=== PATIENT | male | born 1950 | race Caucasian/White ===

== ENCOUNTER 2017-11-16 21:06 | Emergency (ER) | payer MEDICARE, OTHER ==
[~2017-11-16] VITALS: Ht 177.8 cm; Wt 110.2 kg
[2017-11-16] MEDS ORDERED: ALLO100 PO (21:16)
[2017-11-16] MEDS ORDERED: COLCHICINE0.6 MG PO (21:57)
[2017-11-16] MEDS ORDERED: Omeprazole20 M1 PO (21:58)
[2017-11-16 22:22] LABS: BASOPHILS ABSOLUTE AUTO 0.06 K/mm3 (0.00-0.23); BASOPHILS PERCENT AUTO 1 % (0-2); EOSINOPHILS PERCENT AUTO 5 % (0-6); Hematocrit 45.2 % (37.0-53.0); IMMATURE GRAN ABSOLUTE AUTO 0.13 K/mm3 (0.00-0.10); IMMATURE GRAN PERCENT AUTO 2 % (0-1); LYMPHOCYTES ABSOLUTE AUTO 1.69 K/mm3 (0.84-5.20); LYMPHOCYTES PERCENT AUTO 28 % (21-46); MONOCYTES ABSOLUTE AUTO 0.53 K/mm3 (0.16-1.47); MONOCYTES PERCENT AUTO 9 % (4-13); Mean Corpuscular HGB 32.2 pg (26.0-34.0); Mean Corpuscular HGB Conc 35.4 g/dL (31.5-36.5); Mean Corpuscular Volume 91 fL (80-100); Mean Platelet Volume 10.1 fL (9.1-12.4); NEUTROPHILS ABSOLUTE AUTO 3.34 K/mm3 (1.96-9.15); NEUTROPHILS PERCENT AUTO 55 % (41-73); Platelet Count 200 K/mm3 (150-400); Red Blood Cell Count 4.97 M/mm3 (4.30-5.90); White Blood Cell Count 6.05 K/mm3 (4.00-11.30)
[2017-11-16 22:43] LABS: Alanine Aminotransfer (ALT/SGP 40 U/L (12-78); Albumin, Blood 3.2 g/dL (3.4-5.0); Albumin/Globulin Ratio 0.8 (0.8-1.8); Alk Phos 93 U/L (50-136); Anion Gap 13 mmol/L (6-16); Aspartate Aminotrans (AST/SGOT 25 U/L (12-37); Bilirubin, Total 0.2 mg/dL (0.1-1.0); Blood Urea Nitrogen 12 mg/dL (8-24); Bun/Creatinine Ratio 16.4 (12.0-20.0); CO2, Blood 23 mmol/L (21-32); Calcium, Blood 8.4 mg/dL (8.5-10.1); Chloride, Blood 104 mmol/L (98-108); Creatinine, Blood 0.73 mg/dL (0.60-1.20); Globulin, Blood 3.9 g/dL (2.2-4.0); Glomerular Filtration Rate >60 (60-); Glucose, Blood 217 mg/dL (70-99); Potassium, Blood 3.9 mmol/L (3.5-5.5); Sodium, Blood 140 mmol/L (136-145); Total Protein, Blood 7.1 g/dL (6.4-8.2); Troponin I <0.015 ng/mL (0.000-0.040)
[2017-11-16] MEDS ORDERED: Augmentin 875-1 EACH PO (22:43)
[2017-11-16] MEDS ORDERED: BENZ100A PO (22:43)
== END 2017-11-17 00:50 | disposition home or self-care (01) ==
LOC: ER 21:06
PROVIDERS: Emergency Medicine
DX: J18.9 Pneumonia, unspecified organism (principal); Z88.1 Allergy status to other antibiotic agents; Z88.8 Allergy status to other drugs, medicaments and biological substances; Z79.899 Other long term (current) drug therapy; E11.9 Type 2 diabetes mellitus without complications; I10 Essential (primary) hypertension; Z87.891 Personal history of nicotine dependence
CPT/HCPCS: 36415; 71046; 80053; 84484; 85025; 93005; 93010; 94640; 99283-25

== ENCOUNTER → 2020-02-04 | Outpatient (CLI) | payer MEDICARE, OTHER ==
[~2020-02-04] MED LIST: ACET325 PO; ALLO100 PO; Augmentin 875-1 EACH PO; BENZ100A PO; CHLO25B PO; COLCHICINE0.6 MG PO; COQ-10100 MG PO; EZETIMIBE10 M3 PO; FISH OIL 1,2001 EAC7 PO; HYDURE500 PO; Hydroxyurea500 MG PO; LISI5 PO; METFORMIN HCL500 M2 PO; OMEP20ER PO; Omeprazole20 M1 PO; POTA10T PO; TURMERIC500 M2 PO; VICTOZA 3-0.6 MG/0.2 SC; VITAMIN D325 MC3 PO; XARELTO20 MG PO
[2020-02-04 17:01] LABS: BASOPHILS ABSOLUTE AUTO 0.03 K/mm3 (0.00-0.23); BASOPHILS PERCENT AUTO 1 % (0-2); EOSINOPHILS ABSOLUTE AUTO 0.13 K/mm3 (0.00-0.68); EOSINOPHILS PERCENT AUTO 2 % (0-6); Hematocrit 42.2 % (37.0-53.0); Hemoglobin 15.8 g/dL (13.5-17.5); IMMATURE GRAN ABSOLUTE AUTO 0.05 K/mm3 (0.00-0.10); IMMATURE GRAN PERCENT AUTO 1 % (0-1); LYMPHOCYTES ABSOLUTE AUTO 1.49 K/mm3 (0.84-5.20); LYMPHOCYTES PERCENT AUTO 25 % (21-46); MONOCYTES ABSOLUTE AUTO 0.58 K/mm3 (0.16-1.47); MONOCYTES PERCENT AUTO 10 % (4-13); Mean Corpuscular HGB 42.2 pg (26.0-34.0); Mean Corpuscular HGB Conc 37.4 g/dL (31.5-36.5); Mean Corpuscular Volume 113 fL (80-100); Mean Platelet Volume 9.6 fL (9.1-12.4); NEUTROPHILS ABSOLUTE AUTO 3.61 K/mm3 (1.96-9.15); NEUTROPHILS PERCENT AUTO 61 % (41-73); Platelet Count 158 K/mm3 (150-400); RDW Coefficient Variation 12.5 % (11.7-14.2); RDW Standard Deviation 51.9 fL (35.1-46.3); Red Blood Cell Count 3.74 M/mm3 (4.30-5.90); White Blood Cell Count 5.89 K/mm3 (4.00-11.30)
[2020-02-04 17:12] LABS: Anion Gap 10 mmol/L (6-16); Blood Urea Nitrogen 15 mg/dL (8-24); Bun/Creatinine Ratio 14.4 (12.0-20.0); CO2, Blood 29 mmol/L (21-32); Chloride, Blood 100 mmol/L (98-108); Creatinine, Blood 1.04 mg/dL (0.60-1.20); Glomerular Filtration Rate >60 (60-); Glucose, Blood 194 mg/dL (70-99); Potassium, Blood 3.6 mmol/L (3.5-5.5); Sodium, Blood 139 mmol/L (136-145); Troponin I 0.033 ng/mL (0.000-0.040)
== END | disposition home or self-care (01) ==
LOC: LAB EV 16:51 → LAB SHORT 16:51
PROVIDERS: Family Medicine
DX: R07.89 Other chest pain (principal)
CPT/HCPCS: 80048; 84484; 85025

== ENCOUNTER 2020-02-07 14:39 | Inpatient (IN) | payer MEDICARE, OTHER ==
[~2020-02-07] VITALS: Ht 177.8 cm; Wt 102.2 kg
[~2020-02-07 14:39] MED LIST changes: -ACET325 PO; -CHLO25B PO; -COQ-10100 MG PO; -EZETIMIBE10 M3 PO; -FISH OIL 1,2001 EAC7 PO; -HYDURE500 PO; -Hydroxyurea500 MG PO; -LISI5 PO; -METFORMIN HCL500 M2 PO; -OMEP20ER PO; -POTA10T PO; -TURMERIC500 M2 PO; -VICTOZA 3-0.6 MG/0.2 SC; -VITAMIN D325 MC3 PO; -XARELTO20 MG PO
[2020-02-07] MEDS ORDERED: CHLO25B PO (16:37)
[2020-02-07] MEDS ORDERED: LISI5 PO (16:37)
[2020-02-07] MEDS ORDERED: VICTOZA 3-0.6 MG/0.2 SC (16:37)
[2020-02-07] MEDS ORDERED: HYDURE500 PO (16:38)
[2020-02-07] MEDS ORDERED: EZETIMIBE10 M3 PO (16:38)
[2020-02-07] MEDS ORDERED: Hydroxyurea500 MG PO (16:38)
[2020-02-07] MEDS ORDERED: METFORMIN HCL500 M2 PO (16:39)
[2020-02-07 17:36] LABS: International Normalized Ratio 1.04; Prothrombin Time Results 11.1 Sec (9.7-11.5)
[2020-02-07] MEDS ORDERED: OMEP20ER PO (18:26)
[2020-02-07] MEDS ORDERED: TURMERIC500 M2 PO (18:26)
[2020-02-07] MEDS ORDERED: VITAMIN D325 MC3 PO (18:27)
[2020-02-07] MEDS ORDERED: FISH OIL 1,2001 EAC7 PO (18:28)
[2020-02-07] MEDS ORDERED: COQ-10100 MG PO (18:29)
--- NOTE | 2020-02-07 19:00 | NUR ---
ASSUMPTION OF CARE BEDSIDE REPORT FROM SUNNY JO, PT AWAKE IN BED ORIENTED x4, ON 2L PER NC TO MAINTAIN O2> 90% AND PROVIDED COMFORT, PT DENIES SOB WITH SUPPLEMENTAL O2, MONITOR SHOWS SINUS RHYTHM WITH HR 100-110, HYPERTENSION NOTED WITH SBP 160'S. HEPARIN ON SB AT THIS TIME, PLAN FOR HVAC DESIGN ENGINEER SOON. PT DENIES ANY PAIN AT THIS TIME.
--- NOTE | 2020-02-07 19:18 | NUR ---
1755 TO ICU 2 FROM ER ASSESSMENTS COMPLETED, PT A&OX4, PLEASANT AND COOPERATIVE, REPORTS MILD SOB AT REST. O2 2L/NC PLACED, SPO2 94%, LS CLEAR. PT DENIES CHEST PAIN AND LE PAIN AT THIS TIME, HR 105 SINUS IRREGULAR, BP ELEVATED 160'S/100. NO PEDAL EDEMA NOTED, PPP, ANTI EMBOLIC STOCKINGS PLACED. NO HEAT/SWELLING NOTED TO LE'S. PT PLEASANT AND COOPERATIVE, AT BEDSIDE, BOTH ABLE TO ANSWER ADMISSION QUESTIONS WITHOUT DIFFICULTY. HEPARIN BOLUS AND INFUSION ADMINISTERED PER ORDERS, DR. ALLEN AT BEDSIDE TO ASSESS, PROCEDURE CONSENT SIGNED BY PT AND DOCTOR. HEPARIN ON SB PER DR. ALLEN AT 1900, PHARMACY NOTIFIED. REPORT TO ONCOMING SHIFT.
--- NOTE | 2020-02-07 19:24 | NUR ---
PT TRANSPORTED TO PIPELINE GANG SUPERVISOR.
[2020-02-07 19:33] LABS: BASOPHILS ABSOLUTE AUTO 0.04 K/mm3 (0.00-0.23); BASOPHILS PERCENT AUTO 1 % (0-2); EOSINOPHILS ABSOLUTE AUTO 0.15 K/mm3 (0.00-0.68); EOSINOPHILS PERCENT AUTO 3 % (0-6); Hematocrit 44.2 % (37.0-53.0); Hemoglobin 16.3 g/dL (13.5-17.5); IMMATURE GRAN ABSOLUTE AUTO 0.06 K/mm3 (0.00-0.10); IMMATURE GRAN PERCENT AUTO 1 % (0-1); LYMPHOCYTES PERCENT AUTO 29 % (21-46); MONOCYTES ABSOLUTE AUTO 0.46 K/mm3 (0.16-1.47); MONOCYTES PERCENT AUTO 8 % (4-13); Mean Corpuscular HGB 41.9 pg (26.0-34.0); Mean Corpuscular HGB Conc 36.9 g/dL (31.5-36.5); Mean Corpuscular Volume 114 fL (80-100); NEUTROPHILS ABSOLUTE AUTO 3.37 K/mm3 (1.96-9.15); NEUTROPHILS PERCENT AUTO 58 % (41-73); Platelet Count 119 K/mm3 (150-400); RDW Coefficient Variation 12.5 % (11.7-14.2); RDW Standard Deviation 51.5 fL (35.1-46.3); Red Blood Cell Count 3.89 M/mm3 (4.30-5.90); White Blood Cell Count 5.78 K/mm3 (4.00-11.30)
[2020-02-07 19:52] LABS: Alanine Aminotransfer (ALT/SGP 52 U/L (12-78); Albumin, Blood 3.6 g/dL (3.4-5.0); Alk Phos 52 U/L (50-136); Anion Gap 7 mmol/L (6-16); Aspartate Aminotrans (AST/SGOT 40 U/L (12-37); Bilirubin, Total 0.6 mg/dL (0.1-1.0); Blood Urea Nitrogen 13 mg/dL (8-24); Bun/Creatinine Ratio 19.9 (12.0-20.0); CO2, Blood 27 mmol/L (21-32); Calcium, Blood 9.7 mg/dL (8.5-10.1); Chloride, Blood 106 mmol/L (98-108); Creatinine, Blood 0.65 mg/dL (0.60-1.20); Globulin, Blood 3.6 g/dL (2.2-4.0); Glomerular Filtration Rate >60 (60-); Glucose, Blood 150 mg/dL (70-99); Potassium, Blood 3.6 mmol/L (3.5-5.5); Sodium, Blood 140 mmol/L (136-145); Total Protein, Blood 7.2 g/dL (6.4-8.2); Troponin I 0.027 ng/mL (0.000-0.040)
--- NOTE | 2020-02-07 22:30 | NUR ---
PT BACK FROM HEALTH POLICY MANAGER @ 2143, ALERT AND ORIENTED, DENIES CP/SOB, 1 SHEATH WITH 2 EKOS, R GROIN SITE STABLE, NO TENDERNESS, TPA INF @ 1mg/hr (50ml/hr) x2, HEPARIN INF @ 6ml/hr TO PERIPHERAL IV. SEE CARDIAC ASSESSMENT FOR LIMB ASSESSMENT. RT TO ROOM TO SET UP PTS HOME CPAP. CALL PLACED TO DR ALLEN TO CLARIFY HEPARIN, ORDER PLACED IN Stylewhile.
[2020-02-08 01:37] LABS: BASOPHILS ABSOLUTE AUTO 0.02 K/mm3 (0.00-0.23); BASOPHILS PERCENT AUTO 0 % (0-2); EOSINOPHILS PERCENT AUTO 2 % (0-6); Hemoglobin 14.3 g/dL (13.5-17.5); IMMATURE GRAN ABSOLUTE AUTO 0.04 K/mm3 (0.00-0.10); IMMATURE GRAN PERCENT AUTO 1 % (0-1); LYMPHOCYTES ABSOLUTE AUTO 1.21 K/mm3 (0.84-5.20); LYMPHOCYTES PERCENT AUTO 25 % (21-46); MONOCYTES ABSOLUTE AUTO 0.39 K/mm3 (0.16-1.47); MONOCYTES PERCENT AUTO 8 % (4-13); Mean Corpuscular HGB 42.3 pg (26.0-34.0); Mean Corpuscular HGB Conc 36.7 g/dL (31.5-36.5); Mean Corpuscular Volume 115 fL (80-100); Mean Platelet Volume 9.7 fL (9.1-12.4); NEUTROPHILS ABSOLUTE AUTO 3.02 K/mm3 (1.96-9.15); NEUTROPHILS PERCENT AUTO 63 % (41-73); Platelet Count 101 K/mm3 (150-400); RDW Coefficient Variation 12.6 % (11.7-14.2); RDW Standard Deviation 53.2 fL (35.1-46.3); Red Blood Cell Count 3.38 M/mm3 (4.30-5.90); White Blood Cell Count 4.78 K/mm3 (4.00-11.30)
[2020-02-08 01:49] LABS: Alanine Aminotransfer (ALT/SGP 41 U/L (12-78); Albumin, Blood 2.9 g/dL (3.4-5.0); Albumin/Globulin Ratio 0.9 (0.8-1.8); Alk Phos 43 U/L (50-136); Anion Gap 5 mmol/L (6-16); Aspartate Aminotrans (AST/SGOT 37 U/L (12-37); Bilirubin, Total 0.6 mg/dL (0.1-1.0); Blood Urea Nitrogen 12 mg/dL (8-24); Bun/Creatinine Ratio 15.2 (12.0-20.0); CO2, Blood 30 mmol/L (21-32); Calcium, Blood 8.6 mg/dL (8.5-10.1); Chloride, Blood 105 mmol/L (98-108); Creatinine, Blood 0.79 mg/dL (0.60-1.20); Globulin, Blood 3.1 g/dL (2.2-4.0); Glomerular Filtration Rate >60 (60-); Glucose, Blood 158 mg/dL (70-99); Potassium, Blood 3.4 mmol/L (3.5-5.5); Sodium, Blood 140 mmol/L (136-145)
--- NOTE | 2020-02-08 06:39 | NUR ---
SHIFT SUMMARY NO ACUTE CHANGES THIS SHIFT, PT WEARS CPAP WITH 6L BLEED IN T/O NIGHT, R GROIN SITE STABLE, EKOS x2 IN PLACE INFUSING TPA, DECREASED TO 0.5mg/hr THIS SHIFT (SEE FLOWSHEET), HEPARIN INFUSING VIA PERIPHERAL IV @ 6ml/hr. PT AROUSES TO VERBAL STIMULI, DENIES PAIN OR SOB, BLE STABLE, WARM TO THE TOUCH, PULSES PRESENT. PT USING URINAL WITH ASSISTANCE. CALL LIGHT WITHIN REACH, PT USING APPROPRIATELY.
--- NOTE | 2020-02-08 08:15 | NUR ---
ASSESSMENT- PT AWAKE, ALERT, COOPERATIVE. NO DISTRESS. STATES "MAYBE SLIGHT DISCOMFORT MID CHEST", STATES BETTER THAN BEFORE, RATES LEVEL 1 ON SCALE, DENIES SOB AT REST, STATES OXYGEN HELPS. SMALL AMOUNT BLOODY SPUTUM. LUNGS CLEAR, SATURATIONS 91% ON 4 L/MIN NC, RESP RATE 28-[address] APICAL REGULAR, ST. BP STABLE. NO OTHER S/S BLEEDING. NO N/V. URINE CLEAR. HEPARIN GTT AT 300 UNITS/HR VIA PIV RIGHT WRIST, SITE DI, USED FOR BLOOD DRAW. RIGHT FEMORAL EKOS SITE DI, NO BLEEDING/SWELLING/HEMATOMA. NS AT 25 CC/HR X 2 TO BOTH PORTS AND TPA AT 25 CC/HR= 0.5 MG/HR X 2 TO BOTH PORTS. REPOSITIONED TILTED TO SIDE, AM CARE. REVIEWED CATH PRECAUTIONS, STATES UNDERSTANDING. ABLE TO USE CALL LIGHT, TALKED WITH ON PHONE.
--- NOTE | 2020-02-08 10:15 | NUR ---
PT WITH STABLE VS. UPDATE TO DR. ALLEN REGARDING INVERTED T WAVES V LEAD, TACHYPNEA. PLAN TO INFUSE TPA NOW UNTIL COMPLETE-D/C CATHS 1230.
--- NOTE | 2020-02-08 10:44 | NUR ---
PT STATES ALL CHEST DISCOMFORT RESOLVED, REFUSES PAIN RX. DENIES SOB, STATES ABLE TO DEEP BREATHE. CONTINUE TO MONITOR
--- NOTE | 2020-02-08 11:41 | NUR ---
Patient is lying in bed and alert. Patient tells me about his medical history, about his current treatment and about the on going plan going forward. Patient has some conserns about his health at this time but is optimistic about how it will lathe turner. Patient talks about his , Deena, his little dog and the the family that he has reconnected with in the last 4yrs. Patient shares about his rosalva and about growing up in a Confucianism home and about how the twists and turns of life have led him to [facility] where he has found meaningful connections to both God and his fellow believers. I listen empathically, normalize patient's experience and provide prayer. Patient responds well and shows signs of being encouraged and verbalizes appreciation for the visit. I will continue to remain available to patient and family.
--- NOTE | 2020-02-08 12:33 | NUR ---
BP ELEVATED, PT C/O CONSTIPATION, GAS DISCOMFORT. DR. NY HERE-UPDATED. ORDERS FOR ANTIHYPERTENSIVE-GIVEN. P
--- NOTE | 2020-02-08 12:55 | NUR ---
DR. RED AT BEDSIDE-D/C EKOS CATHETERS WITHOUT PROBLEMS. SHEATH IN PLACE. HEPARIN ON HOLD FOR ONE HOUR-THEN TO D/C BP IMPROVING. PT DENIES COMPLAINTS
--- NOTE | 2020-02-08 13:40 | NUR ---
DR. ALLEN CALLED BACK, UPDATED WITH PT'S STATUS, SEE ORDERS FOR HEPARIN-TO START 45 MINUTES AFTER HEMOSTASIS OBTAINED AFTER SHEATH PULL. REMAINS TACHYPNEIC, DENIES CHEST PAIN OR SOB.
--- NOTE | 2020-02-08 14:38 | NUR ---
RIGHT FEMORAL SHEATH PULLED, PRESSURE HELD UNTIL HEMOSTASIS OBTAINED, NO BLEEDING/SWELLING OR HEMATOMA. PT TOLERATED WELL. CMS CHECKS TO FEET UNCHANGED. REVIEWED POST CATH PRECAUTIONS. NOTIFIED PHARMACY TO START HEPARIN 45 MINUTES AFTER HEMOSTASIS OBTAINED. PTT ORDERED.
--- NOTE | 2020-02-08 16:57 | NUR ---
SITE CHECKS WNL. HEPARIN GTT RESTARTED AT 15 UNITS/KG/HR PER ORDERS, BOLUS GIVEN OF 6400 UNITS. DENIES PAIN. CONTINUE TO MONITOR
--- NOTE | 2020-02-08 17:53 | NUR ---
ORDERS FOR PCU. REPORT CALLED TO BENITA JO. PT READIED FOR TRANSFER. VSS. SITE UNCHANGED. HEPARIN GTT AT 15 UNIT/KG/HR. SITE INTACT
--- NOTE | 2020-02-08 18:16 | NUR ---
BROUGHT TO PCU ROOM 6 VIA BED FROM ICU. REPORT FROM DEYSI VALDEZ. Pooja/Pooja/OX4. HEPARIN INFUSING AT 15UNITS/KG. RIGHT GROIN SITE BANDAGE CLEAN DRY AND INTACT. LAYING SUPINE FLAT ORDERED UNTIL 1999. CALL LIGHT IN REACH, DENIES NEEDS AT THIS TIME. WILL CONTINUE TO TREAT AND MONITOR UNTIL SHIFT CHANGE.
[2020-02-09 04:41] LABS: BASOPHILS ABSOLUTE AUTO 0.04 K/mm3 (0.00-0.23); BASOPHILS PERCENT AUTO 1 % (0-2); EOSINOPHILS ABSOLUTE AUTO 0.18 K/mm3 (0.00-0.68); EOSINOPHILS PERCENT AUTO 3 % (0-6); Hematocrit 41.7 % (37.0-53.0); IMMATURE GRAN ABSOLUTE AUTO 0.05 K/mm3 (0.00-0.10); IMMATURE GRAN PERCENT AUTO 1 % (0-1); LYMPHOCYTES ABSOLUTE AUTO 1.45 K/mm3 (0.84-5.20); LYMPHOCYTES PERCENT AUTO 26 % (21-46); MONOCYTES ABSOLUTE AUTO 0.49 K/mm3 (0.16-1.47); MONOCYTES PERCENT AUTO 9 % (4-13); Mean Corpuscular HGB 41.7 pg (26.0-34.0); Mean Corpuscular Volume 116 fL (80-100); Mean Platelet Volume 9.9 fL (9.1-12.4); NEUTROPHILS ABSOLUTE AUTO 3.41 K/mm3 (1.96-9.15); NEUTROPHILS PERCENT AUTO 61 % (41-73); Platelet Count 74 K/mm3 (150-400); RDW Coefficient Variation 12.7 % (11.7-14.2); RDW Standard Deviation 54.1 fL (35.1-46.3); White Blood Cell Count 5.62 K/mm3 (4.00-11.30)
[2020-02-09 04:55] LABS: Anion Gap 6 mmol/L (6-16); Blood Urea Nitrogen 12 mg/dL (8-24); Bun/Creatinine Ratio 14.9 (12.0-20.0); CO2, Blood 27 mmol/L (21-32); Calcium, Blood 8.9 mg/dL (8.5-10.1); Chloride, Blood 107 mmol/L (98-108); Creatinine, Blood 0.81 mg/dL (0.60-1.20); Glomerular Filtration Rate >60 (60-); Glucose, Blood 157 mg/dL (70-99); Potassium, Blood 3.4 mmol/L (3.5-5.5); Sodium, Blood 140 mmol/L (136-145)
--- NOTE | 2020-02-09 05:26 | NUR ---
END OF SHIFT SUMMARY NO ACUTE CHANGES THIS SHIFT. VSS. DENIES CP. SOB CONTINUES WITH EXERTION BUT TO A LESSER EXTENT PER PT. PT TITRATED TO RA FROM 3LNC THIS SHIFT. ON HOME CPAP WHILE ASLEEP. SHADIA DRESSING TO R GROIN CDI. SITE PRESENTS W/OUT TENDERNESS, EXCESS REDNESS, OR WARMTH. PT TRENDED DOWN TO SR 80'S TO 90'S HR. WAS BEDREST UNTIL 1999, SINCE THEN PT HAS AMBULATED TO BATHROOM W/OUT INCIDENT. WILL CONTINUE TO MONITOR UNTIL SHIFT CHANGE.
[2020-02-09] MEDS ORDERED: POTA10T PO (15:28)
[2020-02-09] MEDS ORDERED: ACET325 PO (15:28)
[2020-02-09] MEDS ORDERED: XARELTO20 MG PO (15:30)
[2020-02-15 15:09] LABS: ACT. PRT C RESIST W/FV DEFIC. 2.6 ratio (.); APTT 29.7 sec (.); DRVVT RATIO 1.3 ratio (.); DRVVT SCREEN SECONDS 47.5 sec (.); FACTOR VIII ACTIVITY 234 % (.); HEXAGONAL PHOSPHOLIPID NEUTRAL 0 sec (.); HOMOCYSTEINE 7.5 umol/L (.); PRT C ACTIVITY (CHROMOGENIC) 111 % (.)
== END 2020-02-09 16:00 | disposition home or self-care (01) | DRG 175 ==
LOC: ER 14:39 → ICUE 16:48 → ICUW 16:48 → ICUE 17:54 → PCU 02-08 18:07
PROVIDERS: Physician Assistant; ADMIT Family Medicine
PROC: 6A751Z7 Ultrasound Therapy of Other Vessels, Multiple (ICD-10-PCS; principal; 2020-02-07)
PROC: 3E06317 Introduction of Other Thrombolytic into Central Artery, Percutaneous Approach (ICD-10-PCS; 2020-02-07)
PROC: B31TZZZ Fluoroscopy of Left Pulmonary Artery (ICD-10-PCS; 2020-02-07)
PROC: B31SZZZ Fluoroscopy of Right Pulmonary Artery (ICD-10-PCS; 2020-02-07)
DX: I26.02 Saddle embolus of pulmonary artery with acute cor pulmonale (principal); I82.402 Acute embolism and thrombosis of unspecified deep veins of left lower extremity; E11.51 Type 2 diabetes mellitus with diabetic peripheral angiopathy without gangrene; D45 Polycythemia vera; I10 Essential (primary) hypertension; G47.33 Obstructive sleep apnea (adult) (pediatric); Z79.84 Long term (current) use of oral hypoglycemic drugs; K59.00 Constipation, unspecified; I72.4 Aneurysm of artery of lower extremity; E87.6 Hypokalemia; Z87.891 Personal history of nicotine dependence
CPT/HCPCS: 36015; 36415; 37211; 75743; 75825; 76937; 80048; 80053; 81240; 81241; 81291; 82947; 83090; 83880; 84484; 85025; 85240; 85300; 85303; 85306; 85307; 85384; 85610; 85613; 85730; 85732; 86146; 86147; 93005; 93010; 93306; 93970; 99152; 99153; 99285-25; C1757; C1769; C1894; J1644; J1815; J2250; J2997; J3010; J7030; J7050; Q9967

== ENCOUNTER → 2020-02-07 | Outpatient (CLI) | payer MEDICARE, OTHER ==
[2020-02-07 12:32] LABS: BASOPHILS ABSOLUTE AUTO 0.03 K/mm3 (0.00-0.23); BASOPHILS PERCENT AUTO 1 % (0-2); EOSINOPHILS ABSOLUTE AUTO 0.09 K/mm3 (0.00-0.68); EOSINOPHILS PERCENT AUTO 2 % (0-6); Hematocrit 40.1 % (37.0-53.0); IMMATURE GRAN ABSOLUTE AUTO 0.03 K/mm3 (0.00-0.10); IMMATURE GRAN PERCENT AUTO 1 % (0-1); LYMPHOCYTES ABSOLUTE AUTO 0.82 K/mm3 (0.84-5.20); LYMPHOCYTES PERCENT AUTO 18 % (21-46); MONOCYTES ABSOLUTE AUTO 0.39 K/mm3 (0.16-1.47); MONOCYTES PERCENT AUTO 9 % (4-13); Mean Corpuscular HGB 42.4 pg (26.0-34.0); Mean Corpuscular HGB Conc 37.4 g/dL (31.5-36.5); Mean Corpuscular Volume 113 fL (80-100); NEUTROPHILS ABSOLUTE AUTO 3.22 K/mm3 (1.96-9.15); NEUTROPHILS PERCENT AUTO 70 % (41-73); RDW Coefficient Variation 12.9 % (11.7-14.2); RDW Standard Deviation 53.3 fL (35.1-46.3); Red Blood Cell Count 3.54 M/mm3 (4.30-5.90); White Blood Cell Count 4.58 K/mm3 (4.00-11.30)
[2020-02-07 12:33] LABS: Mean Platelet Volume 9.8 fL (9.1-12.4); Platelet Count 111 K/mm3 (150-400)
[2020-02-07 12:44] LABS: Alanine Aminotransfer (ALT/SGP 55 U/L (12-78); Albumin, Blood 3.6 g/dL (3.4-5.0); Albumin/Globulin Ratio 0.9 (0.8-1.8); Alk Phos 51 U/L (40-126); Anion Gap 12 mmol/L (6-16); Aspartate Aminotrans (AST/SGOT 39 U/L (12-37); Bilirubin, Total 0.6 mg/dL (0.1-1.0); Blood Urea Nitrogen 16 mg/dL (8-24); Bun/Creatinine Ratio 15.5 (12.0-20.0); CO2, Blood 27 mmol/L (21-32); Calcium, Blood 10.2 mg/dL (8.5-10.1); Chloride, Blood 98 mmol/L (98-108); Creatinine, Blood 1.03 mg/dL (0.60-1.20); Globulin, Blood 3.8 g/dL (2.2-4.0); Glomerular Filtration Rate >60 (60-); Glucose, Blood 254 mg/dL (70-99); Potassium, Blood 3.8 mmol/L (3.5-5.5); Sodium, Blood 137 mmol/L (136-145); Total Protein, Blood 7.4 g/dL (6.4-8.2); Troponin I 0.026 ng/mL (0.000-0.040)
== END | disposition home or self-care (01) ==
LOC: LAB SHORT 12:16 → LAB EV 12:16
PROVIDERS: Family Medicine
DX: D45 Polycythemia vera (principal); R06.00 Dyspnea, unspecified; Z79.899 Other long term (current) drug therapy
CPT/HCPCS: 80053; 82607; 82747; 83880; 84484; 85014; 85025; 85379

== ENCOUNTER 2020-09-24 06:13 | Day surgery (SDC) | payer MEDICARE, OTHER ==
[~2020-09-24] VITALS: Ht 172.7 cm; Wt 100.0 kg
[~2020-09-24 06:13] MED LIST changes: +ACET325 PO; +CHLO25B PO; +COQ-10100 MG PO; +EZETIMIBE10 M3 PO; +FISH OIL 1,2001 EAC7 PO; +HYDURE500 PO; +Hydroxyurea500 MG PO; +LISI5 PO; +METFORMIN HCL500 M2 PO; +OMEP20ER PO; +POTA10T PO; +TURMERIC500 M2 PO; +VICTOZA 3-0.6 MG/0.2 SC; +VITAMIN D325 MC3 PO; +XARELTO20 MG PO
--- NOTE | 2020-09-24 11:01 | NUR ---
PT BACK TO RECOVERY ROOM VIA BED AFTER PROCEDURE. AWAKE AND ALERT, DENIES ANY DISCOMFORT. VSS, RIGHT GROIN SITE IS SOFT AND NON-TENDER. COFFEE GIVEN PER PT REQUEST. CALL LIGHT IN REACH.
--- NOTE | 2020-09-24 12:13 | NUR ---
PT EATING LUNCH, HEAD OF BED ELEVATED 30 DEGREES. PT DENIES ANY PAIN OR DISCOMFORT. VSS.
--- NOTE | 2020-09-24 13:34 | NUR ---
PT HAS AMBULATED TO THE BATHROOM WITHOUT DIFFUCLY, VOIDED WITHOUT PROBLEMS. RIGHT GROIN SITE SOFT AND NON-TENDER. NO SWELLING OR BLEEDING AT SITE.
[2020-09-24] MEDS ORDERED: CLOP75 PO (13:47)
--- NOTE | 2020-09-24 14:00 | NUR ---
IV DC'D, CATH INTACT. PT GIVEN DC INSTRUCTIONS, VERBALIZED UNDERSTANDING. RIGHT GROIN SITE SOFT AND NON-TENDER AT TIME OF DISCHARGE. NEW RX FOR PLAVIX CALLED INTO [facility] PER PT REQUEST. PT ALSO HAS BEEN MEDICATED WITH PLAVIX 75 MG PO PRIOR TO DISCHARGE. OUT TO CAR VIA WHEELCHAIR.
== END 2020-09-24 17:00 | disposition home or self-care (01) ==
LOC: MHTC 06:13
DX: I70.213 Atherosclerosis of native arteries of extremities with intermittent claudication, bilateral legs (principal); I70.218 Atherosclerosis of native arteries of extremities with intermittent claudication, other extremity; I72.4 Aneurysm of artery of lower extremity; D75.1 Secondary polycythemia; I10 Essential (primary) hypertension; Z86.711 Personal history of pulmonary embolism; Z86.718 Personal history of other venous thrombosis and embolism; E11.9 Type 2 diabetes mellitus without complications; K21.9 Gastro-esophageal reflux disease without esophagitis
CPT/HCPCS: 37236; 37252; 75625; 75716; 75774; 76937; 82947; 85347; 99152; 99153; A9270; C1725; C1760; C1769; C1874; C1887; C1894; J1644; J2250; J3010; J7030; J7050; Q9967

== ENCOUNTER 2021-04-25 23:42 | Inpatient (IN) | payer MEDICARE, OTHER ==
[~2021-04-25] VITALS: Ht 175.3 cm; Wt 102.1 kg
[~2021-04-25 23:42] MED LIST changes: +CLOP75 PO
[2021-04-26] MEDS ORDERED: COLCHICINE0.6 MG PO (00:17)
[2021-04-26] MEDS ORDERED: ALBU90OI6 INH (00:18)
[2021-04-26] MEDS ORDERED: VIT D (00:20)
[2021-04-26] MEDS ORDERED: ALLEGRA ALLERG180 MG PO (00:21)
[2021-04-26] MEDS ORDERED: Multivitamins1 EAC6 PO (00:22)
[2021-04-26 00:39] LABS: BASOPHILS ABSOLUTE AUTO 0.02 K/mm3 (0.00-0.23); BASOPHILS PERCENT AUTO 0 % (0-2); EOSINOPHILS ABSOLUTE AUTO 0.06 K/mm3 (0.00-0.68); EOSINOPHILS PERCENT AUTO 1 % (0-6); Hematocrit 38.1 % (37.0-53.0); Hemoglobin 14.3 g/dL (13.5-17.5); IMMATURE GRAN ABSOLUTE AUTO 0.03 K/mm3 (0.00-0.10); IMMATURE GRAN PERCENT AUTO 1 % (0-1); LYMPHOCYTES PERCENT AUTO 20 % (21-46); MONOCYTES ABSOLUTE AUTO 0.58 K/mm3 (0.16-1.47); MONOCYTES PERCENT AUTO 10 % (4-13); Mean Corpuscular HGB 43.2 pg (26.0-34.0); Mean Corpuscular HGB Conc 37.5 g/dL (31.5-36.5); Mean Corpuscular Volume 115 fL (80-100); Mean Platelet Volume 9.4 fL (9.1-12.4); NEUTROPHILS PERCENT AUTO 69 % (41-73); Platelet Count 134 K/mm3 (150-400); RDW Coefficient Variation 12.4 % (11.7-14.2); RDW Standard Deviation 52.2 fL (35.1-46.3); Red Blood Cell Count 3.31 M/mm3 (4.30-5.90); White Blood Cell Count 6.09 K/mm3 (4.00-11.30)
[2021-04-26 00:54] LABS: Anion Gap 10 mmol/L (6-16); Blood Urea Nitrogen 15 mg/dL (8-24); Bun/Creatinine Ratio 19.3 (12.0-20.0); CO2, Blood 25 mmol/L (21-32); Calcium, Blood 9.1 mg/dL (8.5-10.1); Chloride, Blood 102 mmol/L (98-108); Creatinine, Blood 0.78 mg/dL (0.60-1.20); Glomerular Filtration Rate >60 (60-); Glucose, Blood 288 mg/dL (70-99); Potassium, Blood 3.8 mmol/L (3.5-5.5); Sodium, Blood 137 mmol/L (136-145); Troponin I <0.015 ng/mL (0.000-0.040)
[2021-04-26 05:30] LABS: BASOPHILS ABSOLUTE AUTO 0.02 K/mm3 (0.00-0.23); BASOPHILS PERCENT AUTO 0 % (0-2); EOSINOPHILS ABSOLUTE AUTO 0.05 K/mm3 (0.00-0.68); EOSINOPHILS PERCENT AUTO 1 % (0-6); Hematocrit 35.5 % (37.0-53.0); Hemoglobin 13.1 g/dL (13.5-17.5); IMMATURE GRAN ABSOLUTE AUTO 0.03 K/mm3 (0.00-0.10); IMMATURE GRAN PERCENT AUTO 1 % (0-1); LYMPHOCYTES ABSOLUTE AUTO 1.05 K/mm3 (0.84-5.20); LYMPHOCYTES PERCENT AUTO 21 % (21-46); MONOCYTES ABSOLUTE AUTO 0.46 K/mm3 (0.16-1.47); MONOCYTES PERCENT AUTO 9 % (4-13); Mean Corpuscular HGB 42.8 pg (26.0-34.0); Mean Corpuscular HGB Conc 36.9 g/dL (31.5-36.5); Mean Corpuscular Volume 116 fL (80-100); Mean Platelet Volume 9.4 fL (9.1-12.4); NEUTROPHILS ABSOLUTE AUTO 3.43 K/mm3 (1.96-9.15); NEUTROPHILS PERCENT AUTO 68 % (41-73); Platelet Count 116 K/mm3 (150-400); RDW Coefficient Variation 12.3 % (11.7-14.2); RDW Standard Deviation 52.3 fL (35.1-46.3); Red Blood Cell Count 3.06 M/mm3 (4.30-5.90); White Blood Cell Count 5.04 K/mm3 (4.00-11.30)
[2021-04-26 05:51] LABS: Alanine Aminotransfer (ALT/SGP 33 U/L (12-78); Albumin, Blood 2.7 g/dL (3.4-5.0); Albumin/Globulin Ratio 0.7 (0.8-1.8); Alk Phos 42 U/L (50-136); Anion Gap 8 mmol/L (6-16); Aspartate Aminotrans (AST/SGOT 22 U/L (12-37); Bilirubin, Total 0.6 mg/dL (0.1-1.0); Blood Urea Nitrogen 12 mg/dL (8-24); Bun/Creatinine Ratio 16.5 (12.0-20.0); CO2, Blood 28 mmol/L (21-32); Calcium, Blood 9.1 mg/dL (8.5-10.1); Chloride, Blood 101 mmol/L (98-108); Creatinine, Blood 0.73 mg/dL (0.60-1.20); Globulin, Blood 3.7 g/dL (2.2-4.0); Glomerular Filtration Rate >60 (60-); Glucose, Blood 220 mg/dL (70-99); Potassium, Blood 3.6 mmol/L (3.5-5.5); Sodium, Blood 137 mmol/L (136-145); Total Protein, Blood 6.4 g/dL (6.4-8.2)
[2021-04-26 06:10] LABS: CHOL/HDL RATIO 3.1; Cholesterol 168 mg/dL (50-200); HDL Cholesterol 54 mg/dL (>39); LDL/HDL RATIO 1.6; Low Density Lipoprotein Chol 88 mg/dL (0-110); Triglycerides 129 mg/dL (30-160); Very Low Density Lipoprot Chol 25 mg/dL (6-32)
--- NOTE | 2021-04-26 18:25 | NUR ---
SHIFT SUMMARY: ASSUMED CARE OF PT UPON HIS ARRIVAL FROM ER. A&O X 4, PLEASANT, AMBULATES WITH SBA, GAIT SHUFFLES A BIT. TELEMETRY SHOWS SINUS TACHCARDIA 110-115, SPIKES TO 130'S WITH ACTIVITY AND PAIN. TOLERATED FULL LIQUID DIET. C/O EPIGASTRIC PAIN THAT RADIATES TO BACK, MEDICATED WITH FENTANYL.
--- NOTE | 2021-04-27 00:10 | NUR ---
CONTENT MANAGER SINPU updated on PT's recent decrease of HYdroxyurea from 1500 mg to 1000 mg per home med. 1000 mg was given sent extra 500 mg capsule back to pharmacy. Medicated PT with 50 mg visteril per cwa score of 6 . He drinks 5 glasses of wine per day.Resting quietly
[2021-04-27 06:03] LABS: Anion Gap 11 mmol/L (6-16); Blood Urea Nitrogen 8 mg/dL (8-24); Bun/Creatinine Ratio 11.7 (12.0-20.0); CO2, Blood 26 mmol/L (21-32); Calcium, Blood 8.9 mg/dL (8.5-10.1); Chloride, Blood 101 mmol/L (98-108); Creatinine, Blood 0.69 mg/dL (0.60-1.20); Glomerular Filtration Rate >60 (60-); Glucose, Blood 176 mg/dL (70-99); Potassium, Blood 3.6 mmol/L (3.5-5.5); Sodium, Blood 138 mmol/L (136-145)
--- NOTE | 2021-04-27 06:46 | NUR ---
PT who has polychthemia Vera & ETOH dependance with -*consumption of 4 to 5 wine drinks Q day.has alcoholic pancreatitis.PT is to [facility]. He was medicated x 1 with Visteril 50 mg with helpful effect. He is [employer] . PT has hx of PE & DVT approx [address] he has ct pulm angiogram neg for PE & venous doppler bilat LE neg PE.
--- NOTE | 2021-04-27 15:54 | NUR ---
Initial Assessment with [facility] Filling Hauler 1. Who did you speak with? Spoke with patient 2. What is the patient's prior level of functions? Patient lives independently; patient states he does not use a walker or cane-patient is ambulatory. She has a strong support network of neighbors and friends. 3. What is the patient's current living situation? Patient lives independently with his in a single story dwelling[place] 4. Is the patient and/or family able to provide transportation to and from doctor's appointments and fish bait picker prescriptions? Patient is able to drive. 5. Does patient still drive? Yes 6. POA/PCP/NOK: PCP-Don Nolen/NOK: Deena 7. ANTICIPATED DISCHARGE NEEDS/GOALS: TBD -Return to residence: patient able to return to her residence (patient states her home is safe with running water, heat, electricity, and sewage). -DME: TBD - will transport patient to residence 8. List barriers to discharge: No barriers on this date. 9. Discharge Plan: TBD 10. PCP Follow up appointment: Will be scheduled within seven calendar days of discharge. 11. OTHER COMMENTS: None
--- NOTE | 2021-04-27 16:34 | NUR ---
PT IS A/OX4, SLOW TO RESPOND AT TIMES. PLEASANT AND COOPERATIVE. THE PT IS UP IND TO THE CHAIR AND TO THE BED. THE PT DENIED ANY NAUSEA T/O THE DAY. THE PT REPORTED MILD ABD PAIN AND WAS MEDICATED FOR PAIN X2 TODAY SO FAR. THE PT WAS ADVANCED FROM A FULL LIQUID DIET TO A REGULAR DIET AND HAS TOLERATED THAT WELL SO FAR. PT HAD A CWAW SCORE OF 2 PER THIS RN THIS AM. CALL LIGHT IN REACH, WILL CONTINUE TO MONITOR AND ASSESS FOR CHANGES
--- NOTE | 2021-04-28 04:02 | NUR ---
71 [place] old [place] rec[place] no [facility] services currently has acute alcoholic pancreatitis & desires to abstain from alcohol. He has no acute abd pain for me & tolerated gen diet 100% lunch & dinner. Up indep in room without complex S/Sx ETOH withdrawl. Did have CIWA of 7 at HS with PT able to request vistaril 50 mg po at HS for his nerves. Slept well & PT tolerating indep activity in room. supportive, planning to DC home & stop ETOH use.
[2021-04-28] MEDS ORDERED: THERA-D2000 UNIT PO (08:57)
[2021-04-28] MEDS ORDERED: CHLO10 PO (08:58)
[2021-04-28] MEDS ORDERED: POTCHL20ER PO (08:58)
--- NOTE | 2021-04-28 10:12 | NUR ---
PT DISCHARGED THE PT VERBALIZED UNDERSTANDING OF THE DC INSTRUCTIONS. PRESCRIPTIONS WERE FAXED TO [facility]. PT WAS REMINDED TO FOLLOW UP WITH [facility] FOR A POST HOSPITAL REVIEW. PT WAS GIVEN ALCOHOL CESSATION READING MATERIALS. THE PT WAS TRANSFERED VIA WHEELCHAIR ACCOMPANIED BY THE WEB CONTENT SPECIALIST TO MEET HIS AT THE DOOR
--- NOTE | 2021-04-28 15:14 | NUR ---
Per Dr. eMraz discharge appropriate for 04/28/21. Spoke with patient and he is aware of discharge and does not oppose. Patient's provided transportation to their residence. DME: NO DME needs at this time. Transition of care will contact patient to schedule hospital PCP follow up and patient understands if any health concerns or medication management questions, he may contact his PCP. Patient states he has a good support network of family and friends. No barriers to discharge at this time.
--- NOTE | 2021-04-28 15:45 | NUR ---
Prior to discharge I met with pt. He welcomed my visit, and quick demonstrated thankfulness for the care he has received at [facility]. Pt. was unsettled about his discharge, and asked specifically for pastoral prayer to address fear and his need for spiritual guidance. Pt. again was thankful for my visit. Pastoral prayer was given.
== END 2021-04-28 10:25 | disposition home or self-care (01) | DRG 440 ==
LOC: ER 23:42 → ERHOLD 04-26 02:32 → MEDS 04-26 15:10
PROVIDERS: Internal Medicine; Student in an Organized Health Care Education/Training Program; ADMIT Internal Medicine
PROC: HZ2ZZZZ Detoxification Services for Substance Abuse Treatment (ICD-10-PCS; principal; 2021-04-26)
DX: K85.20 Alcohol induced acute pancreatitis without necrosis or infection (principal); E11.9 Type 2 diabetes mellitus without complications; M10.9 Gout, unspecified; E78.5 Hyperlipidemia, unspecified; G47.30 Sleep apnea, unspecified; D45 Polycythemia vera; I10 Essential (primary) hypertension; Z86.711 Personal history of pulmonary embolism; Z86.718 Personal history of other venous thrombosis and embolism; Z99.89 Dependence on other enabling machines and devices; Z98.890 Other specified postprocedural states; Z87.891 Personal history of nicotine dependence; Z88.1 Allergy status to other antibiotic agents; Z88.8 Allergy status to other drugs, medicaments and biological substances; Z79.02 Long term (current) use of antithrombotics/antiplatelets; Z79.84 Long term (current) use of oral hypoglycemic drugs; Z79.899 Other long term (current) drug therapy
CPT/HCPCS: 36415; 71260; 76705; 80048; 80053; 80061; 83690; 84484; 85025; 93005; 93010; 93970; 94640; 94664; 94760; 96374; 99285-25; A9270; J3010; J3411; J7030; J7120; Q9967

== ENCOUNTER 2021-12-11 10:30 | Day surgery (SDC) | payer MEDICARE, OTHER ==
[~2021-12-11] VITALS: Ht 172.7 cm; Wt 101.0 kg
[~2021-12-11 10:30] MED LIST changes: +ALBU90OI6 INH; +ALLEGRA ALLERG180 MG PO; +CARBLEV25 SL; +CHLO10 PO; +Multivitamins1 EAC6 PO; +POTCHL20ER PO; +THERA-D2000 UNIT PO; +VIT D
== END 2021-12-11 13:56 | disposition home or self-care (01) ==
LOC: ORSCSDS 10:30
PROVIDERS: Podiatrist Foot & Ankle Surgery
PROC: 0Y6Y0Z0 Detachment at Left 5th Toe, Complete, Open Approach (ICD-10-PCS; principal; 2021-12-11 12:45)
DX: E11.621 Type 2 diabetes mellitus with foot ulcer (principal); M86.172 Other acute osteomyelitis, left ankle and foot; L03.032 Cellulitis of left toe; I73.9 Peripheral vascular disease, unspecified; I10 Essential (primary) hypertension; G20 Parkinson's disease; Z79.899 Other long term (current) drug therapy; Z87.891 Personal history of nicotine dependence; Z79.01 Long term (current) use of anticoagulants; Z79.84 Long term (current) use of oral hypoglycemic drugs
CPT/HCPCS: 82947; 88305; 88311; J0690; J2250; J2405; J2704; J2795; J3010; J7120

== ENCOUNTER → 2023-08-29 | Outpatient (CLI) | payer MEDICARE, BC ==
[~2023-08-29] MED LIST changes: +DULO60 PO; +LORA.5 PO; +MULVITA PO; +OZEMPIC2 MG/0.75 SC; +VITAMIN D310 MC4 PO
== END | disposition home or self-care (01) ==
LOC: LAB 10:59 → LAB SHORT 10:59
DX: L08.9 Local infection of the skin and subcutaneous tissue, unspecified (principal)
CPT/HCPCS: 87070; 87077; 87186; 87205

== ENCOUNTER 2024-03-16 08:17 | Day surgery (SDC) | payer MEDICARE, BC ==
[~2024-03-16] VITALS: Ht 175.3 cm; Wt 99.6 kg
[~2024-03-16 08:17] MED LIST changes: +AMOX875 PO; +Acetaminophen650 M1 PO; +CARBLEV25 PO; +DILTIAZEM 24HR120 M2 PO; +INSULANI SC; +MAGNESIUM OXID500 MG PO; +MIRALAX17 GM PO; +OXAYDO5 M1 PO; +Ventolin5 MG/1 ML INH
[2024-03-16] MEDS ORDERED: Lactated Ringer's 1,000 ML IV ONE (08:35)
[2024-03-16] MEDS ORDERED: CeFAZolin Sodium 2,000 MG VIAL ONE (09:03)
[2024-03-16] MEDS ORDERED: NS 50 ML IV ONE (09:04)
[2024-03-16] MEDS ORDERED: propofoL 100 ML IV ONE (09:17)
--- NOTE | 2024-03-16 09:54 | NUR ---
03/16/24 0954 Cata Cason 0.15ML OF EPI (1MG/ML) ADDED TO 0.5% BUPIVACAINE (150MG/30ML) TO MAKE BUPIVACAINE 0.5% WITH EPI 1:200,000.
[2024-03-16] MEDS ORDERED: Bupivacaine 0.5% W/EPI 1:200000 SDV 30ML INJ ONE (09:59)
[2024-03-16 10:56] VITALS: BP 125/89
== END 2024-03-16 11:02 | disposition home or self-care (01) ==
LOC: ORSCSDS 08:17
PROVIDERS: Podiatrist Foot & Ankle Surgery
PROC: 0Y6S0Z0 Detachment at Left 2nd Toe, Complete, Open Approach (ICD-10-PCS; principal; 2024-03-16 09:45)
PROC: 0Y6W0Z0 Detachment at Left 4th Toe, Complete, Open Approach (ICD-10-PCS; principal; 2024-03-16 09:45)
PROC: 0Y6U0Z0 Detachment at Left 3rd Toe, Complete, Open Approach (ICD-10-PCS; principal; 2024-03-16 09:45)
DX: E11.621 Type 2 diabetes mellitus with foot ulcer (principal); M20.42 Other hammer toe(s) (acquired), left foot; I10 Essential (primary) hypertension; G47.33 Obstructive sleep apnea (adult) (pediatric); I48.91 Unspecified atrial fibrillation; Z79.01 Long term (current) use of anticoagulants; G20.A1 Parkinson's disease without dyskinesia, without mention of fluctuations; Z79.4 Long term (current) use of insulin; Z79.84 Long term (current) use of oral hypoglycemic drugs; Z79.899 Other long term (current) drug therapy
CPT/HCPCS: 82947; J0690; J2704

== ENCOUNTER 2024-04-11 00:08 | Day surgery (SDC) | payer MEDICARE, BC | END 2024-04-11 22:58 | disposition home or self-care (01) | LOC: WOUND 00:08 | DX: E11.621 Type 2 diabetes mellitus with foot ulcer (principal); E11.51 Type 2 diabetes mellitus with diabetic peripheral angiopathy without gangrene; I10 Essential (primary) hypertension; I25.10 Atherosclerotic heart disease of native coronary artery without angina pectoris; G47.30 Sleep apnea, unspecified; T81.31XD Disruption of external operation (surgical) wound, not elsewhere classified, subsequent encounter; Z88.8 Allergy status to other drugs, medicaments and biological substances; Z87.891 Personal history of nicotine dependence; Z99.89 Dependence on other enabling machines and devices; Z47.81 Encounter for orthopedic aftercare following surgical amputation; Y83.8 Other surgical procedures as the cause of abnormal reaction of the patient, or of later complication, without mention of misadventure at the time of the procedure | CPT/HCPCS: G0463 ==

== ENCOUNTER 2024-04-17 05:54 | Day surgery (SDC) | payer MEDICARE, BC | END 2024-04-17 23:58 | disposition home or self-care (01) | LOC: WOUND 05:54 | DX: T81.31XD Disruption of external operation (surgical) wound, not elsewhere classified, subsequent encounter (principal); E11.51 Type 2 diabetes mellitus with diabetic peripheral angiopathy without gangrene; I10 Essential (primary) hypertension; I25.10 Atherosclerotic heart disease of native coronary artery without angina pectoris; G20.A1 Parkinson's disease without dyskinesia, without mention of fluctuations; Z89.422 Acquired absence of other left toe(s) | CPT/HCPCS: A6196; G0463 ==

== ENCOUNTER 2024-04-25 03:41 | Day surgery (SDC) | payer MEDICARE, BC | END 2024-04-25 23:00 | disposition home or self-care (01) | LOC: WOUND 03:41 | DX: T81.31XA Disruption of external operation (surgical) wound, not elsewhere classified, initial encounter (principal); E11.621 Type 2 diabetes mellitus with foot ulcer; E11.51 Type 2 diabetes mellitus with diabetic peripheral angiopathy without gangrene; I10 Essential (primary) hypertension; I25.10 Atherosclerotic heart disease of native coronary artery without angina pectoris ==

== ENCOUNTER 2024-05-02 05:06 | Day surgery (SDC) | payer MEDICARE, BC | END 2024-05-02 23:00 | disposition home or self-care (01) | LOC: WOUND 05:06 | DX: T81.31XA Disruption of external operation (surgical) wound, not elsewhere classified, initial encounter (principal); E11.51 Type 2 diabetes mellitus with diabetic peripheral angiopathy without gangrene; I25.10 Atherosclerotic heart disease of native coronary artery without angina pectoris; G20.A1 Parkinson's disease without dyskinesia, without mention of fluctuations; I10 Essential (primary) hypertension; Z89.422 Acquired absence of other left toe(s) | CPT/HCPCS: A6196 ==

== ENCOUNTER 2024-05-14 02:59 | Day surgery (SDC) | payer MEDICARE, BC | END 2024-05-14 23:00 | disposition home or self-care (01) | LOC: WOUND 02:59 | DX: T87.81 Dehiscence of amputation stump (principal); E11.621 Type 2 diabetes mellitus with foot ulcer; E11.51 Type 2 diabetes mellitus with diabetic peripheral angiopathy without gangrene; I10 Essential (primary) hypertension; I25.10 Atherosclerotic heart disease of native coronary artery without angina pectoris ==

== ENCOUNTER 2024-05-21 03:08 | Day surgery (SDC) | payer MEDICARE, BC ==
[2024-05-21] MEDS ORDERED: Lidocaine HCl 4% Cream 5 GM ONE (08:41)
== END 2024-05-21 23:00 | disposition home or self-care (01) ==
LOC: WOUND 03:08
DX: T81.31XA Disruption of external operation (surgical) wound, not elsewhere classified, initial encounter (principal); E11.51 Type 2 diabetes mellitus with diabetic peripheral angiopathy without gangrene; I25.10 Atherosclerotic heart disease of native coronary artery without angina pectoris; I10 Essential (primary) hypertension; G20.A1 Parkinson's disease without dyskinesia, without mention of fluctuations; Z89.422 Acquired absence of other left toe(s)
CPT/HCPCS: A9270

== ENCOUNTER 2024-05-28 04:21 | Day surgery (SDC) | payer MEDICARE, BC ==
[2024-05-28] MEDS ORDERED: Lidocaine HCl 4% Cream 5 GM ONE (08:33)
== END 2024-05-28 23:00 | disposition home or self-care (01) ==
LOC: WOUND 04:21
DX: T81.31XD Disruption of external operation (surgical) wound, not elsewhere classified, subsequent encounter (principal); I10 Essential (primary) hypertension; I25.10 Atherosclerotic heart disease of native coronary artery without angina pectoris; E11.621 Type 2 diabetes mellitus with foot ulcer; E11.51 Type 2 diabetes mellitus with diabetic peripheral angiopathy without gangrene; Y83.8 Other surgical procedures as the cause of abnormal reaction of the patient, or of later complication, without mention of misadventure at the time of the procedure
CPT/HCPCS: A9270

== ENCOUNTER 2024-06-04 04:00 | Day surgery (SDC) | payer MEDICARE, BC ==
[2024-06-04] MEDS ORDERED: Lidocaine HCl 4% Cream 5 GM ONE (08:38)
== END 2024-06-04 23:00 | disposition home or self-care (01) ==
LOC: WOUND 04:00
DX: T87.81 Dehiscence of amputation stump (principal); E11.51 Type 2 diabetes mellitus with diabetic peripheral angiopathy without gangrene; I10 Essential (primary) hypertension; I25.10 Atherosclerotic heart disease of native coronary artery without angina pectoris; G20.A1 Parkinson's disease without dyskinesia, without mention of fluctuations; Z89.422 Acquired absence of other left toe(s)
CPT/HCPCS: A9270

== ENCOUNTER 2024-06-11 06:14 | Day surgery (SDC) | payer MEDICARE, BC ==
[2024-06-11] MEDS ORDERED: Lidocaine HCl 4% Cream 5 GM ONE (09:09)
== END 2024-06-11 23:00 | disposition home or self-care (01) ==
LOC: WOUND 06:14
DX: T81.31XA Disruption of external operation (surgical) wound, not elsewhere classified, initial encounter (principal); E11.51 Type 2 diabetes mellitus with diabetic peripheral angiopathy without gangrene; I25.10 Atherosclerotic heart disease of native coronary artery without angina pectoris; I10 Essential (primary) hypertension; G20.A1 Parkinson's disease without dyskinesia, without mention of fluctuations; Z89.422 Acquired absence of other left toe(s)
CPT/HCPCS: A9270

== ENCOUNTER 2024-06-18 06:19 | Day surgery (SDC) | payer MEDICARE, BC ==
[2024-06-18] MEDS ORDERED: Lidocaine HCl 4% Cream 5 GM ONE (09:28)
== END 2024-06-18 23:00 | disposition home or self-care (01) ==
LOC: WOUND 06:19
DX: T87.81 Dehiscence of amputation stump (principal); E11.51 Type 2 diabetes mellitus with diabetic peripheral angiopathy without gangrene; I10 Essential (primary) hypertension; I25.10 Atherosclerotic heart disease of native coronary artery without angina pectoris; G20.A1 Parkinson's disease without dyskinesia, without mention of fluctuations; Z89.422 Acquired absence of other left toe(s)
CPT/HCPCS: A9270

== ENCOUNTER 2024-06-25 01:20 | Day surgery (SDC) | payer MEDICARE, BC | END 2024-06-25 23:00 | disposition home or self-care (01) | LOC: WOUND 01:20 | DX: T81.30XA Disruption of wound, unspecified, initial encounter (principal); E11.621 Type 2 diabetes mellitus with foot ulcer; E11.51 Type 2 diabetes mellitus with diabetic peripheral angiopathy without gangrene; I10 Essential (primary) hypertension; I25.10 Atherosclerotic heart disease of native coronary artery without angina pectoris; G20.A1 Parkinson's disease without dyskinesia, without mention of fluctuations; Y83.8 Other surgical procedures as the cause of abnormal reaction of the patient, or of later complication, without mention of misadventure at the time of the procedure ==

== ENCOUNTER 2024-07-09 00:18 | Day surgery (SDC) | payer MEDICARE, BC | END 2024-07-09 23:00 | disposition home or self-care (01) | LOC: WOUND 00:18 | DX: E11.51 Type 2 diabetes mellitus with diabetic peripheral angiopathy without gangrene (principal); I73.9 Peripheral vascular disease, unspecified; I10 Essential (primary) hypertension; I25.10 Atherosclerotic heart disease of native coronary artery without angina pectoris; G20.A1 Parkinson's disease without dyskinesia, without mention of fluctuations | CPT/HCPCS: G0463 ==

== ENCOUNTER 2025-03-14 07:33 | Day surgery (SDC) | payer MEDICARE, BC ==
[~2025-03-14] VITALS: Ht 175.3 cm; Wt 100.6 kg
[~2025-03-14 07:33] MED LIST changes: +Balanced Salt Epinephrine Irrigation Solution 500 mL IR SCH; +Ondansetron 4 MG SoluTab MM PRN; +PHENYLEPHRINE\\TROPICAMIDE\\TETRACAINE OPHTHALMIC DILATING SOLN RIGHTEYE PRN; +Povidone-Iodine 450 DROP/30 ML Solution ONE; +Povidone-Iodine 450 DROP/30 ML Solution RIGHTEYE SCH; +Tetracaine HCl/Pf 0.5% Opth Soln 4 ml ONE; +Triamcinolone Inj Susp 40 MG / ML 1ML Vial INJ SCH; +Triamcinolone Inj Susp 40 MG / ML 1ML Vial ONE
--- NOTE | 2025-03-14 08:13 | NUR ---
03/14/25 0813 April Rodriguez PT REPORTS ANXIETY LEVEL 0/10 PRIOR TO ADMINISTRATION OF VALIUM 10MG PO AT 0809. CONTINUOUS SPO2 AND HR MONITORING IN PLACE.
[2025-03-14] MEDS ORDERED: REPATHA SU140 MG/1 M SQ (08:17)
[2025-03-14] MEDS ORDERED: Tetracaine HCl 0.5% Opth Soln 15 ml RIGHTEYE ONE (09:02)
--- NOTE | 2025-03-14 09:08 | NUR ---
03/14/25 0908 Grisel Velazco 82 HR 98% 02 146/91 BP 16 RR
[2025-03-14 09:44] VITALS: BP 137/86
== END 2025-03-14 09:34 | disposition home or self-care (01) ==
LOC: ORSCSDS 07:33
PROVIDERS: Ophthalmology
PROC: 08RJ3JZ Replacement of Right Lens with Synthetic Substitute, Percutaneous Approach (ICD-10-PCS; principal; 2025-03-14 09:00)
DX: E11.36 Type 2 diabetes mellitus with diabetic cataract (principal); H25.811 Combined forms of age-related cataract, right eye; I10 Essential (primary) hypertension; G20.A1 Parkinson's disease without dyskinesia, without mention of fluctuations; K21.9 Gastro-esophageal reflux disease without esophagitis; Z86.718 Personal history of other venous thrombosis and embolism; Z86.711 Personal history of pulmonary embolism; Z79.84 Long term (current) use of oral hypoglycemic drugs; Z79.85 Long-term (current) use of injectable non-insulin antidiabetic drugs; Z79.899 Other long term (current) drug therapy
CPT/HCPCS: A9270; J2003; J3301; V2632

== ENCOUNTER 2025-03-21 07:21 | Day surgery (SDC) | payer MEDICARE, BC ==
[~2025-03-21] VITALS: Ht 175.3 cm; Wt 100.1 kg
[~2025-03-21 07:21] MED LIST changes: -Balanced Salt Epinephrine Irrigation Solution 500 mL IR SCH; -Ondansetron 4 MG SoluTab MM PRN; -PHENYLEPHRINE\\TROPICAMIDE\\TETRACAINE OPHTHALMIC DILATING SOLN RIGHTEYE PRN; -Povidone-Iodine 450 DROP/30 ML Solution RIGHTEYE SCH; +REPATHA SU140 MG/1 M SQ; -Triamcinolone Inj Susp 40 MG / ML 1ML Vial INJ SCH
--- NOTE | 2025-03-21 08:26 | NUR ---
03/21/25 0826 Diya Lea PT PLEASANT AND COOPERATIVE WITH CARE PROVIDED. PT STATED THAT HE'S NOT IN ANY PAIN, AND DENIED NAUSEA. VS SLIGHTLY ELEVATED, PT STATED THAT HE TOOK HIS BP MEDICATION THIS MORNING AT 0530. CALL LIGHT WITHIN REACH, WCTM.
--- NOTE | 2025-03-21 08:51 | NUR ---
03/21/25 0851 Meghana Brito 0849 BP:133/85 HR:87 O2:94% ON NC @6L RESP:14
[2025-03-21] MEDS ORDERED: BSS PLUS/EPINEPHRINE IRRIGATION SOLUTION 500 ML LEFTEYE ONE (08:52)
[2025-03-21 09:09] VITALS: BP 139/89
--- NOTE | 2025-03-21 09:20 | NUR ---
03/21/25 0900 Nahomi Ross RN ASSISTED PT TO RECLINER. VSS. DENIES DIZZINESS/NAUSEA/PAIN AT THIS TIME.
== END 2025-03-21 09:18 | disposition home or self-care (01) ==
LOC: ORSCSDS 07:21
PROVIDERS: Ophthalmology
PROC: 08RK3JZ Replacement of Left Lens with Synthetic Substitute, Percutaneous Approach (ICD-10-PCS; principal; 2025-03-21 09:00)
DX: E11.36 Type 2 diabetes mellitus with diabetic cataract (principal); H25.812 Combined forms of age-related cataract, left eye; Z96.1 Presence of intraocular lens; H52.4 Presbyopia; Z86.718 Personal history of other venous thrombosis and embolism; K21.9 Gastro-esophageal reflux disease without esophagitis; I10 Essential (primary) hypertension; Z86.711 Personal history of pulmonary embolism; I73.9 Peripheral vascular disease, unspecified; G20.A1 Parkinson's disease without dyskinesia, without mention of fluctuations; Z79.84 Long term (current) use of oral hypoglycemic drugs; Z79.85 Long-term (current) use of injectable non-insulin antidiabetic drugs; Z79.01 Long term (current) use of anticoagulants; Z79.899 Other long term (current) drug therapy; Z87.891 Personal history of nicotine dependence
CPT/HCPCS: A9270; J3301; V2632